=== PATIENT | female | born 1970 | race Caucasian/White ===

== ENCOUNTER 2020-09-07 08:04 | Emergency (ER) | payer OTHER ==
[2020-09-07 08:13] VITALS: BP 159/86; PULSE 82; O2SAT 97
--- NOTE | 2020-09-07 08:18 | ERPHSYRPT ---
- History of Present Illness Time Seen by Provider: 09/07/20 08:11 Source: patient Exam Limitations: no limitations Patient Subjective Stated Complaint: Pt has what appears to be a spider bite on her right hand middle finger that is red and draining that appeared on Friday Triage Nursing Assessment: Pt came to ER with c/o of right hand middle finger pain with what appears to be a spider bite that is red and draining, hypertensive, rates hand pain 3/10, doesn't appear to be in any distress Physician History: 49 years old female presented in the ER with chief complaint of right third digit proximal phalanx area of redness and swelling with minimal discharge. Patient report she initially noticed a small bump/possible insect bite 2 days ago with gradually increasing in the redness and yesterday she squeezed it with a small pus discharge. She is complaining of dull aching to sharp pain in the right third digit with movements and palpation without any restricted range of motion. No fever or chills reported. No involvement of joints. No history of MRSA. Occurred: days ago (2) Allergies/Adverse Reactions: No Known Drug Allergies Allergy (Verified 09/07/20 08:13) Hx Tetanus, Diphtheria Vaccination/Date Given: Yes Hx Influenza Vaccination/Date Given: No Hx Pneumococcal Vaccination/Date Given: No Travel Risk - International Travel Have you traveled outside of the country in past 3 weeks: No - Vaccine Status Have you recieved a Covid-19 vaccination: No - Review of Systems Constitutional: No Symptoms Ears, Nose, & Throat: No Symptoms Respiratory: No Symptoms Cardiac: No Symptoms Abdominal/Gastrointestinal: No Symptoms Genitourinary Symptoms: No Symptoms Musculoskeletal: Injury Skin: Cellulitis, Skin Lesions Neurological: No Symptoms Psychological: No Symptoms Endocrine: No Symptoms Hematologic/Lymphatic: No Symptoms Immunological/Allergic: No Symptoms - Past Medical History Pertinent Past Medical History: Yes Neurological History: No Pertinent History ENT History: No Pertinent History Cardiac History: No Pertinent History Respiratory History: No Pertinent History Endocrine Medical History: No Pertinent History Musculoskeletal History: No Pertinent History GI Medical History: No Pertinent History History: No Pertinent History Psycho-Social History: No Pertinent History Female Reproductive Disorders: No Pertinent History Other Medical History: staph in a csection wound-2005 - Past Surgical History Past Surgical History: Yes Neuro Surgical History: No Pertinent History Cardiac: No Pertinent History Respiratory: No Pertinent History Gastrointestinal: No Pertinent History Genitourinary: No Pertinent History Musculoskeletal: No Pertinent History Female Surgical History: Section - Social History Smoking Status: Former smoker How long have you smoked: 2 Exposure to second hand smoke: Yes Drug Use: none Patient Lives Alone: No - Female History Hx Now: No - Nursing Vital Signs Nursing Vital Signs: Initial Vital Signs Temperature 98.2 F 09/07/20 08:08 Pulse Rate 82 09/07/20 08:08 Blood Pressure 159/86 09/07/20 08:08 O2 Sat by Pulse Oximetry 97 09/07/20 08:08 Pain Scale Pain Intensity 3 - Physical Exam General Appearance: no apparent distress, alert Eyes, Ears, Nose, Throat Exam: normal ENT inspection Neck Exam: normal inspection Cardiovascular/Respiratory Exam: chest non-tender, regular rate/rhythm Wrist Exam: normal inspection, non-tender, no evidence of injury Hand Exam: infection (Right third digit proximal phalanx 2 x 2 centimeter area of induration with central punctum. No fluctuation. Warm and tender to touch. Intact range of motion.), soft tissue tenderness, swelling Neuro/Tendon Exam: normal sensation, normal motor functions Mental Status Exam: alert, oriented x 3, cooperative Skin Exam: rash SpO2 Interpretation: normal SpO2: 97 O2 Delivery: Room Air - Progress Progress: unchanged Progress Note: 09/07/20 08:15 I believe patient probably have insect bite, started on antibiotics and outpatient follow-up recommended. Counseled pt/family regarding: diagnosis, need for follow-up - Departure Departure Disposition: Home Clinical Impression: Finger infection Condition: Stable Critical Care Time: No Referrals: MARIETTA JENKINS DO [Primary Care Provider] - (1-2 days for reevaluation) Instructions: Insect Bites and Stings (DC) Additional Instructions: Use Tylenol/ibuprofen as needed for pain. Follow-up with primary care for reevaluation. Return to ER for worsening pain swelling or difficulty movements of finger. Prescriptions: Smz/Tmp Ds Tablet [Bactrim Ds Tablet] 1 udtab PO BID #14 tablet
== END 2020-09-07 08:45 | disposition home or self-care (01) ==
LOC: ED 08:04
DX: L08.9 Local infection of the skin and subcutaneous tissue, unspecified (principal); T63.301A Toxic effect of unspecified spider venom, accidental (unintentional), initial encounter
CPT/HCPCS: 99283